=== PATIENT | female | born 1955 | race Caucasian/White ===

== ENCOUNTER → 2018-10-03 12:55 | Outpatient (CLI) | payer OTHER, SELFPAY ==
--- NOTE | 2018-10-03 13:00 | RAD_ITS ---
STUDY: X-RAY CHEST REASON FOR EXAM: Male, 62 years old. Cough and congestion TECHNIQUE: PA and lateral views of the chest. COMPARISON: None. FINDINGS: The lungs are clear and expanded. There is no demonstrated pleural abnormality. Normal size heart. Normal mediastinum and inderjit. Normal visualized pulmonary arteries. Normal visualized aortic arch and descending thoracic aorta. Normal visualized thoracic spine. Normal visualized ribs, clavicles, and shoulders. There is no demonstrated abnormality of the visualized soft tissue structures of the upper abdomen. RAD/Chest PA and Lateral IMPRESSION: Normal x-ray examination of the chest. Electronically Signed: Michel oMck MD at 13:45 EDT , Service support ,
[2018-10-03 15:39] LABS: HIV - WCH Non-Reactive (Nonreactive)
[2018-10-04 04:08] LABS: HEPATITIS B SURFACE AG Negative (Negative)
[2018-10-04 08:24] LABS: Hep B Surface Antibodies Non Reactive (.); Hepatitis A IgM Antibody Negative (Negative)
[2018-10-06 09:08] LABS: Giardia Lamblia, Stool EIA Negative (Negative)
== END ==
PROVIDERS: Family Provider Family Medicine; PCP Family Medicine; Referring Provider Family Medicine; Visit Provider Family Medicine
DX: Z02.1 Encounter for pre-employment examination (principal)
CPT/HCPCS: 36415; 71046; 86703; 86706; 86709; 86900; 87329; 87340; 87506

== ENCOUNTER → 2020-05-26 14:08 | Outpatient (CLI) | payer MEDICARE, SELFPAY | PROVIDERS: Visit Provider Family Medicine | DX: Z20.828 Contact with and (suspected) exposure to other viral communicable diseases (principal) | CPT/HCPCS: 87635; U0003 ==